=== PATIENT | female | born 2000 | race Caucasian/White ===

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

== ENCOUNTER → 2018-09-15 | Outpatient (REF) | payer OTHER ==
[~2018-09-15] MED LIST: CONC54TA4; FLUO20CA19
== END ==
LOC: M SFHCPLAZ 08:05
PROVIDERS: ATTEND Nurse Practitioner Family
DX: Z00.00 Encounter for general adult medical examination without abnormal findings (principal); Z68.41 Body mass index [BMI] 40.0-44.9, adult; F41.8 Other specified anxiety disorders

== ENCOUNTER 2018-09-28 23:55 | Emergency (ER) | payer OTHER ==
[~2018-09-28] VITALS: Ht 162.6 cm; Wt 104.5 kg
[2018-09-29] MEDS ORDERED: FLUO20CA19 (00:01)
[2018-09-29] MEDS ORDERED: CONC54TA4 (00:01)
--- NOTE | 2018-09-29 01:30 | REP ---
Clinical: Trauma. Technique: Leavitt and bilateral lateral views of the nasal bones. Findings: Nasal septum is midline. Nasal bones appear intact without acute fracture or dislocation. Overlying soft tissues are grossly unremarkable. Impression: No acute nasal bone fracture identified. Electronically Signed by Fran Mcgee MD 09/29/2018 01:21 A
[2018-09-29 02:37] VITALS: BP 107/62
== END 2018-09-29 02:39 | disposition home or self-care (01) ==
LOC: M ED 23:55
DX: S00.33XA Contusion of nose, initial encounter (principal); W22.01XA Walked into wall, initial encounter; Y92.098 Other place in other non-institutional residence as the place of occurrence of the external cause; Z88.0 Allergy status to penicillin; Z79.899 Other long term (current) drug therapy

== ENCOUNTER 2018-10-20 18:34 | Emergency (ER) | payer OTHER ==
[~2018-10-20] VITALS: Ht 162.6 cm; Wt 104.5 kg
--- NOTE | 2018-10-20 19:07 | REP ---
Clinical: Trauma. Technique: AP, lateral, bilateral oblique views left third and fourth digits . Findings: The osseous structures and joint spaces are intact and normal. There is no evidence for acute fracture or dislocation. Surrounding soft tissues are unremarkable. No subcutaneous emphysema or radiodense foreign body. Impression: No obvious acute fracture or dislocation. Electronically Signed by Fran Mcgee MD 10/20/2018 06:58 P
[2018-10-20] MEDS ORDERED: KETO10TAB PO (19:26)
[2018-10-20] MEDS ORDERED: ADACEL/BOOSTRIX VACCINE (DIPHTH/PERTUSS/ACELL/TETANUS)0.5ML SYR (90715) IM ONE (19:30)
[2018-10-20 19:41] VITALS: BP 126/70
== END 2018-10-20 19:42 | disposition home or self-care (01) ==
LOC: M ED 18:34
DX: S60.042A Contusion of left ring finger without damage to nail, initial encounter (principal); W23.0XXA Caught, crushed, jammed, or pinched between moving objects, initial encounter; Y92.89 Other specified places as the place of occurrence of the external cause; Y99.9 Unspecified external cause status; F90.9 Attention-deficit hyperactivity disorder, unspecified type; F41.9 Anxiety disorder, unspecified; F32.9 Major depressive disorder, single episode, unspecified; Z88.0 Allergy status to penicillin; F17.200 Nicotine dependence, unspecified, uncomplicated

== ENCOUNTER → 2018-11-16 | Outpatient (REF) | payer OTHER ==
[~2018-11-16] MED LIST changes: +KETO10TAB PO
[2018-11-16 16:37] LABS: BLOOD UREA NITROGEN 10 MG/DL (7-18); CALCIUM LEVEL 9.3 MG/DL (8.5-10.1); CARBON DIOXIDE LEVEL 29 MEQ/L (21-32); CHLORIDE LEVEL 105 MEQ/L (98-107); CREATININE FOR GFR 0.89 MG/DL (0.55-1.30); GLUCOSE, FASTING 87 MG/DL (70-100); POTASSIUM SERUM 4.1 MEQ/L (3.5-5.1); SODIUM LEVEL 141 MEQ/L (136-145)
== END ==
LOC: M LABDRAW1 15:53
PROVIDERS: ATTEND Physician Assistant Surgical
DX: S60.042D Contusion of left ring finger without damage to nail, subsequent encounter (principal)

== ENCOUNTER → 2018-11-19 | Outpatient (REF) | payer OTHER ==
[2018-11-19 13:02] LABS: ALBUMIN 4.1 GM/DL (3.2-5.2); ALT/SGPT 25 U/L (12-78); BILIRUBIN,TOTAL 0.6 MG/DL (0.2-1.0); BLOOD UREA NITROGEN 12 MG/DL (7-18); CALCIUM LEVEL 9.2 MG/DL (8.5-10.1); CARBON DIOXIDE LEVEL 29 MEQ/L (21-32); CHLORIDE LEVEL 106 MEQ/L (98-107); CREATININE FOR GFR 0.78 MG/DL (0.55-1.30); GLUCOSE, FASTING 79 MG/DL (70-100); POTASSIUM SERUM 4.2 MEQ/L (3.5-5.1); SODIUM LEVEL 141 MEQ/L (136-145); TOTAL PROTEIN 7.4 GM/DL (6.4-8.2)
== END ==
LOC: M SFHCPLAZ 09:44
PROVIDERS: ATTEND Nurse Practitioner Family
DX: Z00.00 Encounter for general adult medical examination without abnormal findings (principal); Z68.41 Body mass index [BMI] 40.0-44.9, adult; F41.8 Other specified anxiety disorders

== ENCOUNTER → 2018-12-31 | Outpatient (REF) | payer OTHER ==
[2018-12-31 12:23] LABS: HEMOGLOBIN A1c 5.2 %
== END ==
LOC: M SFHCPLAZ 09:40
PROVIDERS: ATTEND Physician Assistant
DX: E16.2 Hypoglycemia, unspecified (principal)

== ENCOUNTER → 2019-11-10 | Outpatient (REF) | payer OTHER ==
[~2019-11-10] MED LIST changes: -FLUO20CA19; +FLUO20CA22
[2019-11-10 13:47] LABS: HEMATOCRIT 42.4 % (36.0-47.0); HEMOGLOBIN 14.1 g/dl (12.0-15.5); MEAN CORPUSCULAR HEMOGLOBIN 29.6 pg (27.0-33.0); MEAN CORPUSCULAR HGB CONC 33.3 g/dl (32.0-36.5); MEAN CORPUSCULAR VOLUME 89.1 fl (80.0-96.0); PLATELET COUNT, AUTOMATED 298 10^3/uL (150-450); RED BLOOD COUNT 4.76 10^6/uL (4.00-5.40); WHITE BLOOD COUNT 6.6 10^3/uL (4.0-10.0)
[2019-11-10 14:24] LABS: HEMOGLOBIN A1c 5.5 %
[2019-11-10 14:31] LABS: HCG, SERUM QUANTITATIVE 730 MIU/ML
[2019-11-11 11:19] LABS: RUBELLA IgG QUALITATIVE IMMUNE (IMMUNE)
[2019-11-11 11:47] LABS: HEPATITIS C VIRUS ABY INDEX < 0.0 INDEX (<0.8)
[2019-11-11 11:48] LABS: HIV 1&2 SCREEN CENTAUR NEGATIVE (NEGATIVE)
== END ==
LOC: M LAB REF 12:33
PROVIDERS: ATTEND Obstetrics & Gynecology
DX: O36.80X0 Pregnancy with inconclusive fetal viability, not applicable or unspecified (principal)

== ENCOUNTER → 2019-11-21 | Outpatient (REF) | payer MEDICAID | LOC: M LAB REF 16:25 | PROVIDERS: ATTEND Obstetrics & Gynecology | DX: O36.80X0 Pregnancy with inconclusive fetal viability, not applicable or unspecified (principal) ==

== ENCOUNTER 2020-03-29 18:50 | Emergency (ER) | payer OTHER ==
[~2020-03-29] VITALS: Ht 162.6 cm; Wt 107.7 kg
[2020-03-29] MEDS ORDERED: PREN1CHW6 PO (19:01)
[2020-03-29] MEDS ORDERED: ACETAMINOPHEN 500 MG TAB PO ONE (19:30)
[2020-03-29 21:29] VITALS: BP 116/58
--- NOTE | 2020-03-30 05:01 | REP ---
REASON: Status post twisting injury. The examination is limited by two views. A two-view examination cannot rule out a fracture. This limited two-view examination shows no gross fracture. The mortise is intact. Electronically Signed by Robert Bright DO 03/30/2020 09:16 A
== END 2020-03-29 21:32 | disposition home or self-care (01) ==
LOC: M ED 18:50
DX: S93.402A Sprain of unspecified ligament of left ankle, initial encounter (principal); X50.9XXA Other and unspecified overexertion or strenuous movements or postures, initial encounter; Y92.89 Other specified places as the place of occurrence of the external cause; Y99.0 Civilian activity done for income or pay

== ENCOUNTER → 2020-04-19 | Outpatient (CLI) | payer OTHER ==
[~2020-04-19] MED LIST changes: +PREN1CHW6 PO; +TUMS500C PO
[2020-05-19 10:53] LABS: HEMATOCRIT 35.5 % (36.0-47.0); HEMOGLOBIN 11.8 g/dl (12.0-15.5); MEAN CORPUSCULAR HEMOGLOBIN 29.8 pg (27.0-33.0); MEAN CORPUSCULAR HGB CONC 33.2 g/dl (32.0-36.5); MEAN CORPUSCULAR VOLUME 89.6 fl (80.0-96.0); PLATELET COUNT, AUTOMATED 207 10^3/uL (150-450); RED BLOOD COUNT 3.96 10^6/uL (4.00-5.40); WHITE BLOOD COUNT 8.4 10^3/uL (4.0-10.0)
== END ==
LOC: M LAB 12:32
PROVIDERS: ATTEND Obstetrics & Gynecology
DX: Z34.82 Encounter for supervision of other normal pregnancy, second trimester (principal); Z3A.00 Weeks of gestation of pregnancy not specified

== ENCOUNTER 2020-07-16 15:03 | Inpatient (IN) | payer OTHER ==
[~2020-07-16] VITALS: Ht 162.6 cm; Wt 119.0 kg
[~2020-07-16 15:03] MED LIST changes: -TUMS500C PO
[2020-07-16 15:26] VITALS: BP 119/86
[2020-07-16] MEDS ORDERED: TUMS500C PO (15:31)
[2020-07-16] MEDS ORDERED: LACTATED RINGER'S 1000 ML IV STA (15:34)
[2020-07-16 16:47] LABS: HEMATOCRIT 37.2 % (36.0-47.0); HEMOGLOBIN 12.1 g/dl (12.0-15.5); MEAN CORPUSCULAR HEMOGLOBIN 27.2 pg (27.0-33.0); MEAN CORPUSCULAR HGB CONC 32.5 g/dl (32.0-36.5); MEAN CORPUSCULAR VOLUME 83.6 fl (80.0-96.0); PLATELET COUNT, AUTOMATED 252 10^3/uL (150-450); RED BLOOD COUNT 4.45 10^6/uL (4.00-5.40); WHITE BLOOD COUNT 9.2 10^3/uL (4.0-10.0)
[2020-07-16 17:12] VITALS: BP 133/83
[2020-07-16] MEDS: LR 1,000 ML IV SCH ×2 (18:11→22:58)
[2020-07-16] MEDS: miSOPROStol 50 MCG 1/2 TAB (S0191) PO SCH ×2 (18:11→22:58)
[2020-07-16 18:14] VITALS: BP 134/81
[2020-07-16] MEDS ORDERED: [UNRECOGNIZED DRUG - REMARK] XX SCH (21:00)
[2020-07-17] VITALS (28 sets, daily range): BP systolic 95–168; BP diastolic 51–97
[2020-07-17] MEDS: miSOPROStol 50 MCG 1/2 TAB (S0191) PO SCH ×2 (03:42→06:00)
[2020-07-17] MEDS: CLINDAMYCIN 900 MG in IV 1 EA IV SCH ×3 (06:00→23:00)
[2020-07-17] MEDS ORDERED: FENTANYL 2MCG/ML ROPIVACAINE 0.2% IN 0.9% NACL 100ML IVBAG As Ordered ONE (06:17)
[2020-07-17] MEDS ORDERED: CLINDAMYCIN 900 MG/50 ML PREMIX BAG As Ordered ONE (06:39)
[2020-07-17] MEDS ORDERED: diphenhydrAMINE 50MG/ML VIAL (J1200) IV PRN (07:45)
[2020-07-17] MEDS ORDERED: REFRIGERATOR IV KEYS XX PRN (07:45)
[2020-07-17] MEDS ORDERED: LACTATED RINGER'S 1000 ML IV PRN (07:45)
[2020-07-17] MEDS ORDERED: NALOXONE INJ 0.4MG/1ML VIAL (J2310 PER 1MG) IV PRN (07:45)
[2020-07-17] MEDS ORDERED: ePHEDrine SULFATE 25 MG/5 ML(5MG/ML) SYRINGE IV PRN (07:45)
[2020-07-17] MEDS ORDERED: ONDANSETRON 4MG/2ML VIAL IV PRN (07:45)
[2020-07-17] MEDS ORDERED: EPIDURAL/PCA KEYS XX PRN (07:45)
[2020-07-17] MEDS ORDERED: EPIDURAL COMMENT XX SCH (07:45)
[2020-07-17] MEDS: FENTANYL/ROPIVACAINE/NACL BAG 100 ML EPIDURAL SCH ×2 (08:18→15:35)
[2020-07-17] MEDS ORDERED: OXYTOCIN 30 UNITS IN 0.9% NaCl 500ML IV BAG (J2590) As Ordered ONE (08:35)
[2020-07-17] MEDS ORDERED: OXYTOCIN DRIP 30 UNITS in IV 1 EA IV SCH ×2 (09:00→20:50)
[2020-07-17] MEDS: LR 1,000 ML IV SCH ×3 (09:11→15:42)
[2020-07-17] MEDS ORDERED: BICITRA 30ML SOLN UDC As Ordered ONE (20:18)
[2020-07-17] MEDS ORDERED: METHYLERGONOVINE MALEATE 0.2 MG/ML VIAL (J2210) IM PRN (21:00)
[2020-07-17] MEDS ORDERED: MOM 30ML SUSPENSION UDC PO PRN (21:00)
[2020-07-17] MEDS ORDERED: ACETAMINOPHEN TAB 650MG DOSE (2X325MG) PO PRN (21:00)
[2020-07-17] MEDS ORDERED: DOCUSATE SODIUM 100 MG CAP PO PRN (21:00)
[2020-07-17] MEDS ORDERED: MEASLES,MUMPS,RUBELLA VACCINE INJ (MMR-II) (90707) SC SCH (21:00)
[2020-07-17] MEDS ORDERED: METHYLERGONOVINE MALEATE 0.2 MG TAB PO PRN (21:00)
[2020-07-17] MEDS ORDERED: ACETAMINOPHEN 500 MG TAB PO PRN (21:00)
[2020-07-17] MEDS ORDERED: DIBUCAINE 1% OINTMENT 30GM TOP PRN (21:00)
[2020-07-17] MEDS ORDERED: ANUSOL HC CREAM 30GM TOP PRN (21:00)
[2020-07-17] MEDS ORDERED: RHOGAM 300 MCG (1500 IU) INJ (J2790) IM SCH (21:00)
[2020-07-17] MEDS ORDERED: IBUPROFEN 600MG TAB PO PRN (21:00)
[2020-07-17] MEDS ORDERED: METHYLERGONOVINE MALEATE 0.2 MG/ML VIAL (J2210) As Ordered ONE (21:14)
[2020-07-17 21:43] LABS: CORD GAS ABE A -5.7; CORD GAS O2 SAT A 52.5 %; CORD GAS PCO2 A 51.3 mmHg; CORD GAS PH A 7.251 UNITS; CORD GAS SBC A 18.8 MEQ/L; CORD GAS TCO2 A 23.6 MEQ/L
[2020-07-17 21:43] LABS: CORD GAS ABE V -6.4; CORD GAS HCO3 V 19.4 MEQ/L; CORD GAS O2 SAT V 78.7 %; CORD GAS PCO2 V 39.6 mmHg; CORD GAS PH V 7.308 UNITS; CORD GAS PO2 V 37.3 mmHg; CORD GAS SBC V 18.9 MEQ/L; CORD GAS TCO2 V 20.6 MEQ/L
[2020-07-18 00:20] VITALS: BP 135/72
[2020-07-18 05:40] VITALS: BP 120/71
--- NOTE | 2020-07-18 07:42 | DN ---
DATE OF DELIVERY: 07/17/2020. Aly is a 20-year-old female, 1, para 0, who was admitted at 40+ weeks gestation for an induction. She underwent three Cytotec, followed by artificial rupture of membranes and Pitocin induction. After an epidural she progressed to fully dilated, pushed and delivered a live male infant in the right occiput anterior position with a nuchal cord x1, that was reduced on the perineum. Apgars are 8 and 9. weight 8 pounds 11 ounces. Placenta delivered spontaneously intact; three vessel cord. Perineum, vagina, cervix inspected, a second degree midline perineal laceration noted, which was repaired using 2-0 Chromic. Estimated blood loss was 450 cc. One dose of Methergine I.M. given after delivery of the placenta and to help control bleeding. Good hemostasis noted. Patient tolerated the procedure well. MTDD
[2020-07-18] MEDS: PRENATAL VITAMINS CHEWABLE TABLET PO SCH (09:08)
[2020-07-18] MEDS: IBUPROFEN 800 MG TAB PO PRN (09:09)
[2020-07-18] MEDS: LR 1,000 ML IV SCH (09:09)
--- NOTE | 2020-07-18 09:30 | HPE ---
DATE OF ADMISSION: 07/16/2020 Aly is a 20-year-old female 1, para 0 with an estimated date of confinement (EDC) of 07/13/2020, estimated gestational age (EGA) 40+ gestation who is being admitted for an induction. Upon admission, no bleeding, no leakage of fluid, good movement. Her record reviewed which was essentially unremarkable. LABORATORY: Blood type is O positive, rubella immune, hepatitis negative, HIV negative, GC/chlamydia negative. One-hour sugar testing was within normal limits. Her GBS is positive. MEDICAL HISTORY: Significant for asthma. PAST SURGICAL HISTORY: Tonsillectomy as a child, pyloric stenosis, left knee surgery. SOCIAL HISTORY: Denies any alcohol or drugs or cigarette smoking. REVIEW OF SYSTEMS: Unremarkable. MEDICATIONS: vitamins. ALLERGIES: PENICILLIN. PHYSICAL EXAMINATION: Obese female in no acute distress. Abdomen: Soft, nontender, nondistended. Extremities: No clubbing, cyanosis, or edema. Vaginal exam: Fingertip, thick, and posterior. Fetus at -3 station in vertex position. Tracing reviewed. Category 1 tracing. ASSESSMENT: 1. Intrauterine at 40+ weeks gestation. 2. Morbid obesity. PLAN: Admit to Labor and Delivery. Routine labs sent. Induction process discussed. We will initiate Cytotec induction, pain management also discussed. The patient opted for an epidural. We will continue to monitor. Anticipate delivery. MTDD
[2020-07-18 18:01] VITALS: BP 122/64
[2020-07-19] MEDS: IBUPROFEN 800 MG TAB PO PRN ×2 (01:29→08:53)
[2020-07-19 05:44] VITALS: BP 121/67
[2020-07-19] MEDS: PRENATAL VITAMINS CHEWABLE TABLET PO SCH (08:53)
[2020-07-19 08:55] VITALS: BP 121/67
== END 2020-07-19 11:35 | disposition home or self-care (01) | DRG 560 ==
LOC: M LDI 15:03 → M OBS 07-18 00:08
PROVIDERS: ADMIT Obstetrics & Gynecology; ATTEND Obstetrics & Gynecology
PROC: 3E0P7GC Introduction of Other Therapeutic Substance into Female Reproductive, Via Natural or Artificial Opening (ICD-10-PCS; 2020-07-16)
PROC: 10E0XZZ Delivery of Products of Conception, External Approach (ICD-10-PCS; principal; 2020-07-17)
PROC: 0KQM0ZZ Repair Perineum Muscle, Open Approach (ICD-10-PCS; 2020-07-17)
PROC: 10907ZC Drainage of Amniotic Fluid, Therapeutic from Products of Conception, Via Natural or Artificial Opening (ICD-10-PCS; 2020-07-17)
DX: O48.0 Post-term pregnancy (principal); Z3A.40 40 weeks gestation of pregnancy; O99.214 Obesity complicating childbirth; E66.01 Morbid (severe) obesity due to excess calories; O69.81X0 Labor and delivery complicated by cord around neck, without compression, not applicable or unspecified; O70.1 Second degree perineal laceration during delivery; Z37.0 Single live birth

== ENCOUNTER → 2020-09-26 | Outpatient (REF) | payer OTHER ==
[~2020-09-26] MED LIST changes: +TUMS500C PO
[2020-09-26 13:08] LABS: BASO % 0.6 % (0.0-1.0); EOS # 0.1 10^3/uL (0.0-0.5); EOS % 1.7 % (0.0-3.0); HEMATOCRIT 40.1 % (36.0-47.0); HEMOGLOBIN 11.9 g/dl (12.0-15.5); LYMPH # 1.4 10^3/uL (1.5-5.0); LYMPH % 29.4 % (24.0-44.0); MEAN CORPUSCULAR HEMOGLOBIN 24.4 pg (27.0-33.0); MEAN CORPUSCULAR HGB CONC 29.7 g/dl (32.0-36.5); MEAN CORPUSCULAR VOLUME 82.2 fl (80.0-96.0); MONO # 0.4 10^3/uL (0.0-0.8); MONO % 7.4 % (0.0-5.0); NEUTROPHILS # 2.9 10^3/uL (1.5-8.5); NEUTROPHILS % 60.7 % (36.0-66.0); PLATELET COUNT, AUTOMATED 322 10^3/uL (150-450); RED BLOOD COUNT 4.88 10^6/uL (4.00-5.40); WHITE BLOOD COUNT 4.8 10^3/uL (4.0-10.0)
[2020-09-26 13:45] LABS: ALBUMIN 4.3 GM/DL (3.2-5.2); ALT/SGPT 33 U/L (12-78); BILIRUBIN,TOTAL 0.4 MG/DL (0.2-1.0); BLOOD UREA NITROGEN 14 MG/DL (7-18); CALCIUM LEVEL 9.4 MG/DL (8.5-10.1); CARBON DIOXIDE LEVEL 28 MEQ/L (21-32); CHLORIDE LEVEL 105 MEQ/L (98-107); CHOLESTEROL LEVEL 212 MG/DL (<200); CHOLESTEROL RISK RATIO 3.365 (<5); CREATININE FOR GFR 0.73 MG/DL (0.55-1.30); FREE T4 0.81 NG/DL (0.76-1.46); GLOMERULAR FILTRATION RATE > 60.0 (>60); GLUCOSE, FASTING 96 MG/DL (70-100); HDL CHOLESTEROL 63 MG/DL (>40); LDL CHOLESTEROL 122 MG/DL (<100); NON-HDL-C 149 MG/DL; POTASSIUM SERUM 4.7 MEQ/L (3.5-5.1); SODIUM LEVEL 138 MEQ/L (136-145); THYROID STIMULATING HORMONE 0.923 uIU/ML (0.358-3.740); TOTAL PROTEIN 7.3 GM/DL (6.4-8.2); TRIGLYCERIDES LEVEL 136 MG/DL (<150)
== END ==
LOC: M SFHCPLAZ 10:55
PROVIDERS: ATTEND Nurse Practitioner Family
DX: H92.02 Otalgia, left ear (principal); R73.01 Impaired fasting glucose; Z13.228 Encounter for screening for other metabolic disorders; Z13.220 Encounter for screening for lipoid disorders

== ENCOUNTER 2020-12-22 22:34 | Emergency (ER) | payer OTHER ==
[~2020-12-22] VITALS: Ht 162.6 cm; Wt 109.8 kg
[2020-12-22] MEDS ORDERED: ZOLO25TA PO (22:40)
[2020-12-22] MEDS ORDERED: birth control PO (22:40)
[2020-12-22] MEDS ORDERED: CONC18TA14 PO (22:40)
[2020-12-23 01:05] LABS: BASO % 0.5 % (0.0-1.0); EOS # 0.1 10^3/uL (0.0-0.5); HEMATOCRIT 36.6 % (36.0-47.0); HEMOGLOBIN 11.2 g/dl (12.0-15.5); LYMPH # 1.9 10^3/uL (1.5-5.0); LYMPH % 31.8 % (24.0-44.0); MEAN CORPUSCULAR HEMOGLOBIN 23.9 pg (27.0-33.0); MEAN CORPUSCULAR HGB CONC 30.6 g/dl (32.0-36.5); MONO # 0.4 10^3/uL (0.0-0.8); MONO % 7.5 % (2.0-8.0); NEUTROPHILS # 3.5 10^3/uL (1.5-8.5); PLATELET COUNT, AUTOMATED 321 10^3/uL (150-450); RED BLOOD COUNT 4.69 10^6/uL (4.00-5.40); WHITE BLOOD COUNT 5.9 10^3/uL (4.0-10.0)
[2020-12-23 01:10] LABS: INR 0.94; PROTHROMBIN TIME 12.7 SECONDS (12.5-14.3)
[2020-12-23 01:11] LABS: PARTIAL THROMBOPLASTIN TIME 28.7 SECONDS (24.2-38.5)
[2020-12-23 01:23] LABS: HCG, SERUM QUALITATIVE NEGATIVE (NEGATIVE)
[2020-12-23 01:25] LABS: ALT/SGPT 23 U/L (12-78); BLOOD UREA NITROGEN 13 MG/DL (7-18); CARBON DIOXIDE LEVEL 27 MEQ/L (21-32); CHLORIDE LEVEL 106 MEQ/L (98-107); CPK CREATINE PHOSPHOKINASE 140 U/L (26-192); CREATININE FOR GFR 0.85 MG/DL (0.55-1.30); GLOMERULAR FILTRATION RATE > 60.0 (>60); GLUCOSE, FASTING 90 MG/DL (70-100); MB/CK RELATIVE INDEX 0.71 (< OR =4); POTASSIUM SERUM 4.2 MEQ/L (3.5-5.1); SODIUM LEVEL 139 MEQ/L (136-145)
[2020-12-23 01:26] LABS: ALBUMIN 3.5 GM/DL (3.2-5.2); BILIRUBIN,DIRECT < 0.1 MG/DL (0.0-0.2); BILIRUBIN,TOTAL 0.3 MG/DL (0.2-1.0); FREE T4 0.83 NG/DL (0.76-1.46); LIPASE 113 U/L (73-393); TOTAL PROTEIN 7.1 GM/DL (6.4-8.2); TROPONIN I < 0.02 NG/ML (< 0.10)
[2020-12-23] MEDS ORDERED: ISOVUE-370 76% 100ML VIAL As Ordered ONE (01:26)
[2020-12-23 01:36] LABS: D-DIMER QUANT < 270 ng/ml (<500)
--- NOTE | 2020-12-23 01:53 | REPVR ---
PROCEDURE INFORMATION: Exam: CTA Chest With Contrast Exam date and time: 12/23/2020 1:42 AM Age: 20 years old Clinical indication: Chest pain; Type not specified; Additional info: R/O dissection/ pulmonary embolus TECHNIQUE: Imaging protocol: Computed tomographic angiography of the chest with contrast. 3D rendering (Not supervised by radiologist): MIP and/or 3D reconstructed images were created by the technologist. Radiation optimization: All CT scans at this facility use at least one of these dose optimization techniques: automated exposure control; mA and/or kV adjustment per patient size (includes targeted exams where dose is matched to clinical indication); or iterative reconstruction. Contrast material: ISOVUE 370; Contrast volume: 75 ml; Contrast route: INTRAVENOUS (IV); COMPARISON: CT ANGIO CHEST 06/28/2015 3:36 PM FINDINGS: Pulmonary arteries: No focal pulmonary artery filling defect to suggest acute pulmonary embolus. Aorta: No thoracic aortic aneurysm or dissection. Lungs: No suspicious lung mass or air space process. No suspicious lung mass or air space process. No central endobronchial lesion. Pleural spaces: No pleural effusion or pneumothorax. Heart: Mild enlargement of the heart, without change. No pericardial effusion. Mediastinal space: Residual thymic tissue is present in the anterior mediastinum. Lymph nodes: No enlarged mediastinal lymph nodes. Bones/joints: Bony structures show no acute fracture or destructive process. Soft tissues: No asymmetric abnormality of the extrathoracic soft tissues. Other findings: . IMPRESSION: 1. No evidence of acute pulmonary embolus or aortic dissection. 2. No other acute or concerning focal intrathoracic abnormality. 3. Prominent sized heart without interval change and with no evidence of pulmonary edema Electronically signed by: Ang Wei On 12/23/2020 01:53:33 AM
--- NOTE | 2020-12-23 02:02 | REPVR ---
PROCEDURE INFORMATION: Exam: XR Chest Exam date and time: 12/23/2020 1:51 AM Age: 20 years old Clinical indication: Other: Chest pain TECHNIQUE: Imaging protocol: XR of the chest Views: 1 view. COMPARISON: CT ANGIO CHEST 12/23/2020 1:34 AM FINDINGS: Lungs: Degree of lung inflation is normal. No evidence of pulmonary edema. No focal consolidation or parenchymal lung mass. Pleural spaces: No pleural effusion or pneumothorax. Heart/Mediastinum: Cardiac silhouette appears normal. No adenopathy or hilar mass. Bones/joints: Osseous structures show no concerning abnormality. IMPRESSION: No acute or focal cardiopulmonary process. Electronically signed by: Ang Wei On 12/23/2020 02:02:43 AM
[2020-12-23] MEDS: diphenhydrAMINE 25MG CAP PO ONE (02:05)
[2020-12-23] MEDS: ACETAMINOPHEN TAB 650MG DOSE (2X325MG) PO ONE (02:05)
[2020-12-23] MEDS: NS 1,000 ML IV ONE (02:06)
[2020-12-23 03:00] VITALS: BP 119/65
[2020-12-23] MEDS ORDERED: IBUP-1022 PO (03:07)
[2020-12-23] MEDS ORDERED: PEPC20TA18 PO (03:08)
[2020-12-23] MEDS ORDERED: FAMO20TA PO (03:09)
--- NOTE | 2020-12-23 06:38 | ECGEPIP ---
[facility] - ED Test Date: 2020-12-22 Pat Name: JACK LOTT Department: Room: - Gender: Female Pharmacy Benefits Coordinator: JUDIT : 2000 Requested By: KARISSA CHAMORRO Order Number: [id number] Reading MD: Helen Leahy Measurements Intervals [place] Rate: 89 P: 43 [place]: 164 QRS: -12 QRSD: 82 T: 32 QT: 374 QTc: 455 Interpretive Statements Normal sinus rhythm Minimal voltage criteria for LVH, may be normal variant ( R in aVL ) Nonspecific T wave abnormality Delayed R wave progression cw 06/28/[address] T wave changes Electronically Signed on 12-23-2020 6:38:47 EDT by Helen Leahy
--- NOTE | 2020-12-23 06:40 | ECGEPIP ---
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
== END 2020-12-23 03:24 | disposition home or self-care (01) ==
LOC: M ED 22:34
DX: R07.89 Other chest pain (principal); R94.31 Abnormal electrocardiogram [ECG] [EKG]; Q87.40 Marfan syndrome, unspecified; Z79.899 Other long term (current) drug therapy; Z79.3 Long term (current) use of hormonal contraceptives
CPT/HCPCS: 71045; 71275; 80048; 80076; 82550; 82553; 83690; 84439; 84443; 84703; 85025; 85379; 85610; 85730; 93005; 93041; 94760; 96360; 99285; Q9967

== ENCOUNTER 2021-04-03 21:39 | Inpatient (IN) | payer OTHER ==
[~2021-04-03] VITALS: Ht 162.6 cm; Wt 108.8 kg
[~2021-04-03 21:39] MED LIST changes: +CONC18TA14 PO; +FAMO20TA PO; +IBUP-1022 PO; +PEPC20TA18 PO; +ZOLO25TA PO; +birth control PO
[2021-04-03] MEDS ORDERED: LO LTAB PO (21:47)
[2021-04-03 22:28] LABS: HEMOGLOBIN 12.1 g/dl (12.0-15.5); MEAN CORPUSCULAR HEMOGLOBIN 25.6 pg (27.0-33.0); MEAN CORPUSCULAR HGB CONC 31.8 g/dl (32.0-36.5); MEAN CORPUSCULAR VOLUME 80.5 fl (80.0-96.0); PLATELET COUNT, AUTOMATED 269 10^3/uL (150-450); RED BLOOD COUNT 4.72 10^6/uL (4.00-5.40); WHITE BLOOD COUNT 6.7 10^3/uL (4.0-10.0)
[2021-04-03 23:00] LABS: AMPHETAMINES LEVEL URINE NEGATIVE (NEGATIVE); BARBITURATES URINE NEGATIVE (NEGATIVE); BENZODIAZEPINES URINE NEGATIVE (NEGATIVE); CANNABINOIDS URINE NEGATIVE (NEGATIVE); COCAINE METABOLITE URINE NEGATIVE (NEGATIVE); METHADONE URINE NEGATIVE (NEGATIVE); OPIATES URINE NEGATIVE (NEGATIVE); PHENCYCLIDINE URINE NEGATIVE (NEGATIVE)
[2021-04-03 23:06] LABS: ACETAMINOPHEN LEVEL < 2.0 UG/ML (10.0-30.0); ALBUMIN 3.9 GM/DL (3.2-5.2); ALT/SGPT 30 U/L (12-78); BILIRUBIN,DIRECT < 0.1 MG/DL (0.0-0.2); BILIRUBIN,TOTAL 0.2 MG/DL (0.2-1.0); BLOOD UREA NITROGEN 12 MG/DL (7-18); CALCIUM LEVEL 9.1 MG/DL (8.5-10.1); CARBON DIOXIDE LEVEL 26 MEQ/L (21-32); CHLORIDE LEVEL 109 MEQ/L (98-107); CREATININE FOR GFR 0.86 MG/DL (0.55-1.30); ETHYL ALCOHOL (ETHANOL) < 0.003 % (0.000-0.010); GLOMERULAR FILTRATION RATE > 60.0 (>60); GLUCOSE, FASTING 83 MG/DL (70-100); POTASSIUM SERUM 4.3 MEQ/L (3.5-5.1); SALICYLATE LEVEL < 1.7 MG/DL (5.0-30.0); SODIUM LEVEL 142 MEQ/L (136-145); TOTAL PROTEIN 7.4 GM/DL (6.4-8.2)
[2021-04-03] MEDS ORDERED: FAMO20TA PO (23:12)
[2021-04-03] MEDS ORDERED: METH36TA5 PO (23:12)
[2021-04-03] MEDS ORDERED: ZOLO100T PO (23:12)
--- NOTE | 2021-04-04 05:34 | ECGEPIP ---
[facility] - ED Test Date: 2021-04-04 Pat Name: JACK LOTT Department: Room: - Gender: Female Dinkey Engine Firer: YOLY BROWNB: 2000 Requested By: RAJESH Teran Order Number: [id number] Reading MD: Moo Lynn Measurements Intervals [place] Rate: 66 P: 18 NC: 160 QRS: 16 QRSD: 84 T: 12 QT: 410 QTc: 429 Interpretive Statements Normal sinus rhythm POOR R WAVE PROGRESSION SIMILAR TO 12/23/20 Electronically Signed on 04-04-2021 5:34:45 EDT by Moo Lynn
[2021-04-04 08:36] LABS: HCG, SERUM QUALITATIVE NEGATIVE (NEGATIVE)
[2021-04-04] MEDS ORDERED: SERTRALINE 100 MG TAB PO ONE (09:10)
[2021-04-04] MEDS ORDERED: METHYLPHENIDATE ER 18 MG TABLET (CONCERTA) PO ONE (09:10)
[2021-04-04 09:13] LABS: RSV AMPLIFICATION NEGATIVE (NEGATIVE)
[2021-04-04] MEDS ORDERED: hydrOXYzine 25 MG TAB PO PRN (11:25)
[2021-04-04] MEDS ORDERED: MAALOX 30 ML SUSP *UDC PO PRN (11:25)
[2021-04-04] MEDS ORDERED: traZODone 50 MG TAB PO PRN (11:25)
[2021-04-04] MEDS ORDERED: MOM 30ML SUSPENSION UDC PO PRN (11:25)
[2021-04-04 14:07] VITALS: BP 121/74
[2021-04-04] MEDS ORDERED: hydrOXYzine 50 MG TAB PO PRN (15:45)
--- NOTE | 2021-04-04 16:15 | MHHPEPDOC ---
General Date Of Admission: Apr 04, 2021 Legal Status: 9.39 Chief Complaint "I was having self-harm tung. History of Present Illness HISTORY OF THE PRESENT ILLNESS: Patient is a 21 -year-old Single, Employed, Domiciled , female, who reports having depression and self harm (cutting self) thoughts for at least 7 years. She had been seeing a psychiatrist who left the area, but found him later in another clinic. She states that she had been pushing her depression aside but recently states that her depression and anxiety has increased due to: 1) boyfriend recently had surgery, she now has to support their family, 2) she recently had a baby who is now 9 months, 3) she feels overwhelmed with working (working 48-60 hours a week) and 4) taking care of the household and 5) taking care of the baby, 6) reports a toxic relationship with her mother. "Everything is on me." PER ED REPORT: Pt self presents to [facility] ED after increasing thoughts of SI. Pt c/o anxiety, depression, intrusive thoughts, erratic appetite, erratic sleep, self-harm and SI. Pt reports that she has a history of self-harm. Pt reports that yesterday she cut superficially on her arms and upper thigh for the first time in 7 years. Pt reports that she did this in an attempt to feel. Pt also reports that she has suffered with depression for 8 years and reports having it under control for the last 7 years however, reports battling with depression since her son has been born. Pt reports loving her son and now not wanting it any other way but also knowing that her plans in life changed drastically since his . Pt reports that her son is now 9 months old. Pt reports seeing outpatient for post- depression however, has felt suicidal 3 times in the last 2 weeks. Pt reports not following through with suicide because of her son. Pt reports feeling as though her son has saved her. Pt reports not currently having a plan for suicide. Pt does report having a lot of anxiety and depression stemming from childhood. Pt reports having a very toxic relationship with her mother and feels that she is bringing this trauma into her present. Pt reports that her boyfriend of 2.5 years is a great support for her. Pt denies HI/AH/VH. Psychiatric Review of Systems Depression (2 or more weeks): depressed mood, insomnia/hypersomnia (due to work schedule ), feelings of excess/guilt, feelings of worthlesness (feelings of hopelessness and hopelessness), appetite changes, suicidal thoughts, other (impulse) Alicia (4 or more days of): denies Psychosis: denies PTSD: history of trauma Anxiety: stressor related anxiety, panic attacks Anxiety/ 6 months or more of: restlessness, keyed up, difficulty concentrating, irritability, sleep disturbance Past Psychiatric History Previous Psychiatric Diagnosis: Major Depressive Disorder, Anxiety, ADD, ADHD Previous Psychiatric Admissions: This is first hospitalization Suicide Attempts: 6 years ago, tried to commit via cutting, no sutures had multiple superficial lacerations Psychiatric Follow-up: Sees Dr. Hatfield Psychiatric medications: Zoloft. Reports being on other anti-depression medications but doesn't remember the names Prozac - was discontinued, Mom didn't think it was effective Wellbutrin - Past Medical History Medical Problems no contributory medical history Head Injury: No Seizures: No Hospitalizations: Yes Surgeries: No Family Medical/Psychiatric HX Medical Problems Father - Cardiac - two heart surgeries, COPD Psychiatric Disorders: No Addiction: No Suicide Attemps/Completions: No Addiction History nicotine (vaped but quit one month ago), alcohol (occasional), denies Social History Childhood: Born in [place], [place] to both parents, describes childhood as "shitty" when she wa 4 years old. Mom was financially stressed. Lived with mother during the week and lived with dad in the weekend. 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 Social Support: My boyfriend, partner at work Legal: None Marital: Single, not , has 1 child Mental Status Examination General Appearance: well groomed, appears stated age, hospital scubs/clothing Build: overweight Demeanor: average, guarded Eye Contact: fair Activity: anxious Behavior: cooperative Speech: clear, reg/rate,rhythm,volume Mood: depressed, anxious Affect: constricted Thought Process: logical/linear Thought Content (Delusions): none reported Thought Content (Other): none reported Thought Content (Aggressive): none reported Perception (Hallucinations): none reported Perception (Other): none reported Cognition (Impairment of): none reported Cognition(Intelligence Est.): average Oriented: Awake, Alert, Oriented times three Insight: fair Judgment: Fair Psychosis: Denies Diagnoses Major Depressive Disorder, Single Episode, Moderate Unspecified Anxiety Disorder ADD ADHD A-FIB/CHADSVASC A-FIB History Current/History of A-Fib/PAF?: No Current PO Anticoag Therapy: No Age/Risk Factor Scoring CHADSVASC: CHADSVASC Response (Comments) Value Age Risk Factor Age < 65 years old 0 Gender Risk Factor Female 1 Hx of CHF No 0 Hx of HTN No 0 Hx of Stroke/TIA/or VTE No 0 Hx of Diabetes No 0 Hx of Vascular Disease No 0 Total 1 Treatment Treatment ordered: NONE Assessment Patient is a 21 -year-old Single, Employed, Domiciled , female, who reports having depression and self harm thoughts for at least 7 years. She had been seeing a psychiatrist who left the area, but found him later in another clinic. She states that she had been pushing her depression aside but recently states that her depression and anxiety has increased due to: boyfriend recently had surgery, she now has to support their family, she recently had a baby who is now 9 months, she feels overwhelmed with working (working 48-60 hours a week) and taking care of the household and taking care of the baby, reports a toxic relationship with her mother. "Everything is on me She is hoping to have her medications adjusted and stabilize her mood. Initial Treatment Plan 1. Patient was admitted on a [9.39] status. 2. Complete history was obtained. 3. With patients permission, family will be contacted and database will be expanded. 4. Patients medication regimen will be reviewed and changed accordingly. 5. Patient will be provided with protected environment. 6. Patient will be treated with individual, group, and milieu therapies. 7. Patient will receive supportive psych-education. 8. Discharge planning will commence immediately. 9. Outpatient follow-up treatment will be strongly recommended. 10. The initial treatment plan will focus initially on: * Depression. * Risk for suicide. ESTIMATED LENGTH OF STAY: 3-7 DAYS. TIME SPENT COUNSELING AND COORDINATING INITIAL CARE: 60 minutes. N/A-No Antipsychotics Vital Signs Vital Signs Date Time Temp Pulse Resp B/P (MAP) Pulse Ox O2 Delivery O2 Flow Rate FiO2 04/04/21 14:07 98.0 76 14 121/74 (90) 100 Room Air Laboratory Data 24H Labs Laboratory Tests 2 04/03/21 22:16: Nucleated Red Blood Cells % (auto) 0.0, Anion Gap 7L, Glomerular Filtration Rate > 60.0, Calcium Level 9.1, Total Bilirubin 0.2, Direct Bilirubin < 0.1, Aspartate Amino Transf (AST/SGOT) 16, Alanine Aminotransferase (ALT/SGPT) 30, Alkaline Phosphatase 103, Total Protein 7.4, Albumin 3.9, Albumin/Globulin Ratio 1.1L, Thyroid Stimulating Hormone (TSH) 1.740, Human Chorionic Gonadotropin, Qual NEGATIVE, Salicylates Level < 1.7L, Urine Opiates Screen NEGATIVE, Urine Methadone Screen NEGATIVE, Acetaminophen Level < 2.0L, Urine Barbiturates Screen NEGATIVE, Urine Phencyclidine Screen NEGATIVE, Urine Amphetamines Screen NEGATIVE, Urine Benzodiazepines Screen NEGATIVE, Urine Cocaine Metabolite Screen NEGATIVE, Urine Cannabinoids Screen NEGATIVE, Ethyl Alcohol Level < 0.003 04/04/21 08:27: Coronavirus (COVID-19)(PCR) NEGATIVE, Influenza Type A (RT-PCR) NEGATIVE, Influenza Type B (RT-PCR) NEGATIVE, Respiratory Syncytial Virus (PCR) NEGATIVE CBC/BMP Laboratory Tests 04/03/21 22:16 Medications Scheduled Methylphenidate HCl (Methylphenidate ER) 36 Mg Tab.er.24, 36 MG PO DAILY, (Reported) Sertraline Hcl (Zoloft) 100 Mg Tablet, 100 MG PO DAILY, (Reported) Scheduled PRN Famotidine (Famotidine) 20 Mg Tablet, 20 MG PO BID PRN for ACID REFLUX, (Reported) Allergies Coded Allergies: Penicillins (Verified Allergy, Unknown, 03/29/20) CHERYL SILVERIO NP Apr 04, 2021 15:15
[2021-04-05 05:43] VITALS: BP 126/78
[2021-04-05] MEDS: SERTRALINE 100 MG TAB PO SCH (08:19)
[2021-04-05] MEDS: METHYLPHENIDATE ER 18 MG TABLET (CONCERTA) PO SCH (08:19)
--- NOTE | 2021-04-05 10:05 | MHIPNPDOC ---
[facility] Progress Note Progress Note DATE OF SERVICE: 04/05/21 HISTORY: Patient is a 21 -year-old Single, Employed, Domiciled , female, who reports having depression and self harm (cutting self) thoughts for at least 7 years. She had been seeing a psychiatrist who left the area, but found him later in another clinic. She states that she had been pushing her depression aside but recently states that her depression and anxiety has increased due to: 1) boyfriend recently had surgery, she now has to support their family, 2) she recently had a baby who is now 9 months, 3) she feels overwhelmed with working (working 48-60 hours a week) and 4) taking care of the household and 5) taking care of the baby, 6) reports a toxic relationship with her mother. "Everything is on me." PER ED REPORT: Pt self presents to [facility] ED after increasing thoughts of SI. Pt c/o anxiety, depression, intrusive thoughts, erratic appetite, erratic sleep, self-harm and SI. Pt reports that she has a history of self-harm. Pt reports that yesterday she cut superficially on her arms and upper thigh for the first time in 7 years. Pt reports that she did this in an attempt to feel. Pt also reports that she has suffered with depression for 8 years and reports having it under control for the last 7 years however, reports battling with depression since her son has been born. Pt reports loving her son and now not wanting it any other way but also knowing that her plans in life changed drastically since his . Pt reports that her son is now 9 months old. Pt reports seeing outpatient for post- depression however, has felt suicidal 3 times in the last 2 weeks. Pt reports not following through with suicide because of her son. Pt reports feeling as though her son has saved her. Pt reports not currently having a plan for suicide. Pt does report having a lot of anxiety and depression stemming from childhood. Pt reports having a very toxic relationship with her mother and feels that she is bringing this trauma into her present. Pt reports that her boyfriend of 2.5 years is a great support for her. Pt denies HI/AH/VH. VITAL SIGNS: See below. CURRENT MEDICATIONS: See below. MENTAL STATUS EXAMINATION: Patient is a 21 -year-old Single, Employed, Domiciled , female, who reports having depression and self harm (cutting self) General Appearance: well groomed, appears stated age, hospital scrubs/clothing Build: overweight Demeanor: average, guarded Eye Contact: fair Activity: anxious Behavior: cooperative Speech: clear, reg/rate,rhythm,volume Mood: depressed, anxious Affect: constricted Thought Process: logical/linear Thought Content (Delusions): none reported Thought Content (Other): none reported Thought Content (Aggressive): none reported Perception (Hallucinations): none reported Perception (Other): none reported Cognition (Impairment of): none reported Cognition(Intelligence Est.): average Oriented: Awake, Alert, Oriented times three Insight: fair Judgment: Fair Psychosis: Denies DIAGNOSES: Major Depressive Disorder, Single Episode, Moderate Unspecified Anxiety Disorder ADD ADHD ASSESSMENT: Patient remains depressed and anxious although reports that she has some improvement with having peers to talk to. Reviews with treatment team that most of her stressors was having to support herself, the baby and her boyfriend as he recently had surgery. She states that she has toxic relationship with her mother but has not has any recent communication with her mother. MANAGEMENT PLAN: Continue all medications as ordered, continue supportive therapies and we will discharge when stable TIME SPENT: 25 minutes. Vital Signs Vital Signs Date Time Temp Pulse Resp B/P (MAP) Pulse Ox O2 Delivery O2 Flow Rate FiO2 04/05/21 07:53 Room Air 04/05/21 05:43 98.0 68 18 126/78 (94) 96 Current Medications Current Medications Medications (Trade) Dose Ordered Sig/Rachelle Route PRN Reason Start Time Stop Time Status Last Admin Dose Admin Acetaminophen (Tylenol Tab) 650 mg Q6HP PRN PO HEADACHE or MILD DISCOMFORT 04/04/21 11:25 Al Hydrox/Mg Hydrox/Simethicone (Mylanta) 30 ml Q4HP PRN PO HEARTBURN/INDIGESTION 04/04/21 11:25 Home Med (Med Rec Complete!) ASDIRECTED XX 04/03/21 23:15 04/03/21 23:16 DC Hydroxyzine HCl (Atarax) 25 mg Q6HP PRN PO ANXIETY 04/04/21 11:25 04/04/21 15:48 DC Hydroxyzine HCl (Atarax) 50 mg Q6H PRN PO ANXIETY/AGITATION 04/04/21 15:45 Magnesium Hydroxide (Milk Of Magnesia) 30 ml DAILYPRN PRN PO CONSTIPATION 04/04/21 11:25 Methylphenidate HCl (Concerta) 36 mg QAM PO 04/05/21 09:00 04/05/21 08:19 Sertraline HCl (Zoloft) 100 mg DAILY PO 04/05/21 09:00 04/05/21 08:19 Trazodone HCl (Desyrel) 50 mg QHSP PRN PO INSOMNIA 04/04/21 11:25 Allergies Coded Allergies: Penicillins (Verified Allergy, Unknown, 03/29/20) CHERYL SILVERIO NP Apr 05, 2021 10:05
[2021-04-05] MEDS: ACETAMINOPHEN TAB 650MG DOSE (2X325MG) PO PRN (14:49)
--- NOTE | 2021-04-05 16:32 | HPEPDOC ---
General Date of Admission Apr 04, 2021 at 11:22 Date of Service: Apr 05, 2021 Chief Complaint The patient is a 21-year-old female admitted with a reason for visit of Unspecified Depressive Disorder. Source: Patient History of Present Illness Patient is 21 years old female with past medical history of depression, anxiety, ADHD presented to hospital with suicidal ideation. Patient reported that Pt reports that yesterday she cut superficially on her arms and upper thigh for the first time in 7 years. Pt reports that she did this in an attempt to feel. Pt also reports that she has suffered with depression for 8 years. Patient denies fever, chills, nausea, and secondary dysuria Home Medications Scheduled Methylphenidate HCl (Methylphenidate ER) 36 Mg Tab.er.24, 36 MG PO DAILY, (Reported) Sertraline Hcl (Zoloft) 100 Mg Tablet, 100 MG PO DAILY, (Reported) Scheduled PRN Famotidine (Famotidine) 20 Mg Tablet, 20 MG PO BID PRN for ACID REFLUX, (Reported) Allergies Coded Allergies: Penicillins (Verified Allergy, Unknown, 03/29/20) Past Medical History Medical History Depression, anxiety, ADHD Family History Father has Marfan syndrome Social History * Smoker: former Smoker Alcohol: Denies Drugs: denies A-FIB/CHADSVASC A-FIB History Current/History of A-Fib/PAF?: No Current PO Anticoag Therapy: No Age/Risk Factor Scoring CHADSVASC: CHADSVASC Response (Comments) Value Age Risk Factor Age < 65 years old 0 Gender Risk Factor Female 1 Hx of CHF No 0 Hx of HTN No 0 Hx of Stroke/TIA/or VTE No 0 Hx of Diabetes No 0 Hx of Vascular Disease No 0 Total 1 Review of Systems Constitutional: Denies: Chills Eyes: Denies: Pain ENT: Denies: Head Aches Skin: Denies: Rash, Lesions Pulmonary: Denies: Dyspnea Cardiovascular: Denies: Chest Pain Gastrointestinal: Denies: Nausea, Vomiting Genitourinary: Denies: Dysuria Hematologic: Denies: Bruising Endocrine: Denies: Polydipsia Musculoskeletal: Denies: Neck Pain Neurological: Denies: Weakness Psych: Reports: Anxiety Physical Examination General Exam: Positive: Alert Eye Exam: Positive: PERRLA ENT Exam: Positive: Atraumatic Neck Exam: Positive: Supple Chest Exam: Positive: Clear to auscultation Heart Exam: Positive: Rate Normal Telemetry: Positive: No significant arrhythmia Abdomen Exam: Positive: Normal bowel sounds Extremity Exam: Negative: Clubbing Skin Exam: Positive: Nl turgor and temperature Neuro Exam: Positive: Normal Gait Psych Exam: Positive: Oriented x 3 Vital Signs Vital Signs Date Time Temp Pulse Resp B/P (MAP) Pulse Ox O2 Delivery O2 Flow Rate FiO2 04/05/21 07:53 Room Air 04/05/21 05:43 98.0 68 18 126/78 (94) 96 Assessment/Plan Patient is 21 years old female with past medical history of depression, anxiety, ADHD presented to hospital with suicidal ideation. Patient reported that Pt reports that yesterday she cut superficially on her arms and upper thigh for the first time in 7 years. Pt reports that she did this in an attempt to feel. Pt also reports that she has suffered with depression for 8 years. Patient denies fever, chills, nausea, and secondary dysuria Problems (1) Depression with suicidal ideation Status: Acute Problem Text: Defer treatment to psych team Plan / VTE VTE Prophylaxis Ordered?: No VTE Exclusion Mechanical Proph: Low Risk for VTE MIKAELA COONEY DO Apr 05, 2021 16:32
[2021-04-05 17:27] VITALS: BP 130/72
[2021-04-06 07:05] VITALS: BP 112/54
[2021-04-06] MEDS: SERTRALINE 100 MG TAB PO SCH (08:19)
[2021-04-06] MEDS: METHYLPHENIDATE ER 18 MG TABLET (CONCERTA) PO SCH (08:19)
[2021-04-06] MEDS: ACETAMINOPHEN TAB 650MG DOSE (2X325MG) PO PRN ×2 (08:20→18:52)
[2021-04-06] MEDS: CETIRIZINE (ZyrTEC) 10 MG TAB PO PRN (11:48)
[2021-04-06 16:15] VITALS: BP 129/85
[2021-04-06] MEDS: OXYMETAZOLINE 0.05% NASAL SPRAY (AFRIN) PRN (18:49)
[2021-04-07 05:51] VITALS: BP 119/72
[2021-04-07] MEDS: CETIRIZINE (ZyrTEC) 10 MG TAB PO PRN (08:11)
[2021-04-07] MEDS: METHYLPHENIDATE ER 18 MG TABLET (CONCERTA) PO SCH (08:12)
[2021-04-07] MEDS: SERTRALINE 100 MG TAB PO SCH (08:12)
[2021-04-07] MEDS: OXYMETAZOLINE 0.05% NASAL SPRAY (AFRIN) PRN ×2 (08:12→16:58)
[2021-04-07 18:50] VITALS: BP 124/84
[2021-04-07] MEDS ORDERED: guaiFENesin DM LIQ 10ML UD PO PRN (21:35)
--- NOTE | 2021-04-07 21:41 | IPNPDOC ---
Subjective Date Seen The patient was seen on 04/07/21. Subjective Chief Complaint/HPI Chief complaint: Congestion, cough, shortness of breath and chest pain. History of present illness: Patient is 21 years old female with past medical history of depression, anxiety, ADHD presented to hospital with suicidal ideat ion.. There were reports that she cut superficially on her arms and upper thigh for the first time in 7 years on the day prior to admission.. She stated that she did this in an attempt to feel.. She further said she has suffered with depression for 8 years. She was admitted to the mental health unit for further evaluation and treatment. We were initially consulted to assist with medical management. Called to bedside this evening with complaints of congestion, shortness of breath and low-grade fever of 99.3. The patient states that she started having difficulty with her seasonal allergies from the time of admission. She began to experience congestion. This is not unusual for her when she is inside for long periods of time. She went on to tell me that symptoms got worse today, however. She began to experience some cough and a feeling of tightness in her chest. Congestion seem to worsen. She has a history of exercised induced asthma but is not on any routine medications for this. She was given some Afrin and Atarax with little improvement in her symptoms. Of note, patient states she has received her full Covid vaccination and had a negative Covid test on admission. Objective Physical Examination General Exam: Positive: Alert Eye Exam: Positive: PERRLA ENT Exam: Positive: Atraumatic Neck Exam: Positive: Supple Chest Exam: Positive: Clear to auscultation Heart Exam: Positive: Rate Normal Telemetry: Positive: No significant arrhythmia Abdomen Exam: Positive: Normal bowel sounds Extremity Exam: Negative: Clubbing Skin Exam: Positive: Nl turgor and temperature Neuro Exam: Positive: Normal Gait Psych Exam: Positive: Oriented x 3 Other physical findings Patient was seen in the exam room with complaints as outlined above. She is alert and oriented 3. She is very cooperative and pleasant. HEENT is remarkable for some pain with palpation of sinuses. There is some mild enlargement of submandibular nodes. Lungs are clear to auscultation. Heart regular rate and rhythm without murmur. Abdomen is soft, nontender to percussion and palpation with bowel sounds positive. Extremities with good range of motion. No lower extremity edema. Neurologic: Grossly intact. Assessment /Plan Assessment 1. Suicidal ideation. Plan per psychiatry. 2. Acute bronchitis. We'll treat the patient empirically with ciprofloxacin. Will also add albuterol inhaler and steroids for 5 days. Patient states she expects to discharge tomorrow. Would recommend that she follow-up with primary care in the next 7-10 days and return to the hospital if symptoms worsen. 3. Asthma, exercise-induced, with no acute exacerbation. Plan as outlined above. Thank you for allowing us to produce pain in the care of this patient. We will continue to remain available as needed. Problems (1) Depression with suicidal ideation Status: Acute Problem Text: Defer treatment to psych team Plan/VTE VTE Prophylaxis Ordered?: No VTE Exclusion Mechanical Proph: Low Risk for VTE VS, I&O, 24H, Fishbone Vital Signs/I&O Vital Signs Date Time Temp Pulse Resp B/P (MAP) Pulse Ox O2 Delivery O2 Flow Rate FiO2 04/07/21 18:50 99.3 100 18 124/84 (97) 99 Room Air SARIAH LONG Apr 07, 2021 21:41
[2021-04-07] MEDS: CIPROFLOXACIN 500MG TABLET PO SCH (22:11)
[2021-04-07] MEDS: ALBUTEROL 90 MCG/ACT 8GM HFA INHALER INH SCH (22:11)
--- NOTE | 2021-04-07 22:31 | MHIPN ---
[facility] PROGRESS NOTE DATE: 04/06/2021 The patient is seen via telepsychiatry due to the current Coronavirus crisis. Today, the patient tells me that she is good. She says "I'm pretty happy today." She says she did not sleep good but that is because she has allergies and we will order Zyrtec for her. She has no complaints. MENTAL STATUS EXAMINATION: She is alert and oriented times three, pleasant and cooperative, verbally spontaneous. Eye contact is good. Mood is good. Affect appropriate. There is no formal thought disorder noted. She is not psychotic, suicidal, or homicidal. Concentration and memory is good. Insight and judgment is fair. DIAGNOSES: Major depressive disorder, single episode, moderate. Unspecified anxiety disorder. Attention deficit hyperactivity disorder. TREATMENT PLAN: At this point, we will continue to monitor the patient for further stabilization of her mood and resolution of suicidal ideations.
[2021-04-08] MEDS: CIPROFLOXACIN 500MG TABLET PO SCH (05:29)
[2021-04-08 06:10] VITALS: BP 149/85
[2021-04-08] MEDS: METHYLPHENIDATE ER 18 MG TABLET (CONCERTA) PO SCH (08:31)
[2021-04-08] MEDS: ALBUTEROL 90 MCG/ACT 8GM HFA INHALER INH SCH (08:33)
[2021-04-08] MEDS: SERTRALINE 100 MG TAB PO SCH (08:33)
[2021-04-08] MEDS ORDERED: predniSONE 20 MG TAB PO SCH (09:00)
[2021-04-08] MEDS ORDERED: VENTAER INH (10:15)
[2021-04-08] MEDS ORDERED: METH18TA PO (10:15)
[2021-04-08] MEDS ORDERED: ZOLO100T PO (10:15)
[2021-04-08] MEDS ORDERED: CIPR-249 PO (10:15)
[2021-04-08] MEDS ORDERED: TRAZ-252 PO (10:15)
[2021-04-08] MEDS ORDERED: HYDR50TA70 PO (10:15)
[2021-04-08] MEDS ORDERED: FAMO20TA PO (10:15)
--- NOTE | 2021-04-08 12:20 | MHIPN ---
[facility] PROGRESS NOTE DATE OF SERVICE: 04/07/2021 HISTORY OF PRESENT ILLNESS: Patient today states that she is doing good. She says she slept better, her allergies are much better today. She has no complaints. The patient is seen via TelePsychiatry due to the current Coronavirus crisis. MENTAL STATUS EXAM: This patient is alert and oriented times 3, pleasant and cooperative, verbally spontaneous. Eye contact is good. Affect is full range and appropriate. Patient is not psychotic, suicidal or homicidal. Concentration is fair. Memory intact. Insight and judgment fair. DIAGNOSES: 1. Major depression disorder single episode. 2. Unspecified anxiety disorder. 3. Attention deficit hyperactivity disorder. TREATMENT PLAN: At this point the patient will be monitored for continued elevation and stabilization of mood and continued resolution of any suicidal thoughts.
--- NOTE | 2021-04-08 14:36 | MHDS ---
[facility] DISCHARGE SUMMARY DATE OF ADMISSION: 04/04/2021 DATE OF DISCHARGE: 04/08/2021 DIAGNOSES: 1. Major depressive disorder, moderate. 2. Unspecified anxiety disorder. 3. Attention deficit hyperactivity disorder (ADHD). IDENTIFYING DATA: She is a 21-year-old female, single, employed, living with her boyfriend and two dogs, was admitted because of severe depression and suicidal thoughts. Patient also has a history of cutting behavior. For details of history of present illness (HPI), past psychiatric history, substance abuse history, medical history, personal history, social history, please refer to the initial evaluation. COURSE IN THE HOSPITAL: Patient initially was severely depressed. She had vegetative signs of depression and she also had suicidal thoughts. She was placed on sertraline and she was also provided with individual, group and milieu therapy. Patient's mood slowly improved. She slept better, started interacting with peers and staff. She attended groups. Denied any side effects from the medication. Denied any suicidal thoughts. She was stable at the time of discharge. MENTAL STATUS EXAMINATION: Casually dressed, neatly dressed, cooperative. Made good eye contact. Psychomotor activity is normal. Speech: Rate, rhythm and volume is normal. Thought process: Linear and goal-directed. Mood is euthymic with appropriate affect. Thought content: Denied any suicidal or homicidal ideas. Denied any delusions. Denied any auditory or visual hallucinations. She is oriented to time, place and person. Her attention is good. Memory: Immediate, remote and recent are good. Her impulse control and judgment are good. Insight is good. REVIEW OF SYSTEMS: Denied any chest pain or palpitations. Denied any shortness of breath or cough. Denied abdominal pain. Denied dizziness. MEDICATIONS: - sertraline 100 mg in the morning. - patient was also given by the simulation developer ciprofloxacin 500 mg twice daily continued for five more days - patient was also given albuterol inhaler DISCHARGE PLAN: Patient will be followed up at [facility] outpatient clinic and she gets her attention deficit hyperactivity disorder (ADHD) medications from her family doctor.
--- NOTE | 2021-04-08 22:18 | ECGEPIP ---
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
== END 2021-04-08 12:34 | disposition home or self-care (01) | DRG 751 ==
LOC: M ED 21:39 → M ED INP 04-04 11:22 → M PSY 04-04 14:02
PROVIDERS: ADMIT Psychiatry & Neurology Psychiatry; ATTEND Psychiatry & Neurology Psychiatry
DX: F32.1 Major depressive disorder, single episode, moderate (principal); R45.851 Suicidal ideations; F41.9 Anxiety disorder, unspecified; F90.9 Attention-deficit hyperactivity disorder, unspecified type; J20.9 Acute bronchitis, unspecified; J45.909 Unspecified asthma, uncomplicated; Z20.822 Contact with and (suspected) exposure to COVID-19; Z79.899 Other long term (current) drug therapy; Z91.5 Personal history of self-harm; Z88.0 Allergy status to penicillin; Z87.891 Personal history of nicotine dependence

== ENCOUNTER 2021-04-26 17:16 | Emergency (ER) | payer OTHER ==
[~2021-04-26] VITALS: Ht 162.6 cm; Wt 108.6 kg
[~2021-04-26 17:16] MED LIST changes: +CIPR-249 PO; +HYDR50TA70 PO; +LO LTAB PO; +METH18TA PO; +METH36TA5 PO; +TRAZ-252 PO; +VENTAER INH; +ZOLO100T PO
[2021-04-26] MEDS ORDERED: ZYRTTAB8 PO (17:27)
[2021-04-26 18:44] LABS: HEMOGLOBIN 12.6 g/dl (12.0-15.5); MEAN CORPUSCULAR HEMOGLOBIN 26.5 pg (27.0-33.0); MEAN CORPUSCULAR HGB CONC 32.3 g/dl (32.0-36.5); MEAN CORPUSCULAR VOLUME 82.1 fl (80.0-96.0); PLATELET COUNT, AUTOMATED 277 10^3/uL (150-450); RED BLOOD COUNT 4.75 10^6/uL (4.00-5.40); WHITE BLOOD COUNT 9.6 10^3/uL (4.0-10.0)
[2021-04-26 19:08] LABS: HCG, SERUM QUALITATIVE NEGATIVE (NEGATIVE)
[2021-04-26 19:17] LABS: ACETAMINOPHEN LEVEL < 2.0 UG/ML (10.0-30.0); ALT/SGPT 30 U/L (12-78); BILIRUBIN,DIRECT 0.1 MG/DL (0.0-0.2); BILIRUBIN,TOTAL 0.4 MG/DL (0.2-1.0); BLOOD UREA NITROGEN 15 MG/DL (7-18); CARBON DIOXIDE LEVEL 28 MEQ/L (21-32); CHLORIDE LEVEL 107 MEQ/L (98-107); CREATININE FOR GFR 0.79 MG/DL (0.55-1.30); ETHYL ALCOHOL (ETHANOL) < 0.003 % (0.000-0.010); GLOMERULAR FILTRATION RATE > 60.0 (>60); GLUCOSE, FASTING 89 MG/DL (70-100); POTASSIUM SERUM 3.8 MEQ/L (3.5-5.1); SALICYLATE LEVEL < 1.7 MG/DL (5.0-30.0); SODIUM LEVEL 140 MEQ/L (136-145); TOTAL PROTEIN 7.2 GM/DL (6.4-8.2)
[2021-04-26 19:20] LABS: AMPHETAMINES LEVEL URINE NEGATIVE (NEGATIVE); BARBITURATES URINE NEGATIVE (NEGATIVE); BENZODIAZEPINES URINE NEGATIVE (NEGATIVE); CANNABINOIDS URINE NEGATIVE (NEGATIVE); COCAINE METABOLITE URINE NEGATIVE (NEGATIVE); METHADONE URINE NEGATIVE (NEGATIVE); OPIATES URINE NEGATIVE (NEGATIVE); PHENCYCLIDINE URINE NEGATIVE (NEGATIVE)
[2021-04-26 22:04] LABS: RSV AMPLIFICATION NEGATIVE (NEGATIVE)
[2021-04-27 01:14] VITALS: BP 123/78
--- NOTE | 2021-04-27 07:54 | ECGEPIP ---
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
== END 2021-04-27 01:29 ==
LOC: M ED 18:52
DX: R45.851 Suicidal ideations (principal); F33.9 Major depressive disorder, recurrent, unspecified; Z91.5 Personal history of self-harm; Z88.0 Allergy status to penicillin; Z79.899 Other long term (current) drug therapy

== ENCOUNTER 2021-06-06 18:19 | Emergency (ER) | payer OTHER ==
[~2021-06-06] VITALS: Ht 162.6 cm; Wt 109.4 kg
[~2021-06-06 18:19] MED LIST changes: +ZYRTTAB8 PO
[2021-06-06 18:20] VITALS: BP 139/82
[2021-06-06] MEDS ORDERED: CETI10CH PO (18:39)
[2021-06-06] MEDS ORDERED: SERT50TA29 (18:39)
--- NOTE | 2021-06-07 05:33 | ECGEPIP ---
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
== END 2021-06-06 21:43 | disposition left against medical advice (07) ==
LOC: M ED 18:19
DX: Z53.29 Procedure and treatment not carried out because of patient's decision for other reasons (principal)

== ENCOUNTER 2022-01-19 19:07 | Emergency (ER) | payer OTHER ==
[~2022-01-19] VITALS: Ht 162.6 cm; Wt 103.6 kg
[~2022-01-19 19:07] MED LIST changes: +CETI10CH PO; +SERT50TA29
[2022-01-19 22:29] LABS: BASO % 0.6 % (0.0-1.0); EOS # 0.1 10^3/uL (0.0-0.5); EOS % 1.1 % (0.0-3.0); HEMATOCRIT 41.3 % (36.0-47.0); HEMOGLOBIN 13.8 g/dl (12.0-15.5); LYMPH # 2.2 10^3/uL (1.5-5.0); LYMPH % 29.9 % (24.0-44.0); MEAN CORPUSCULAR HEMOGLOBIN 28.9 pg (27.0-33.0); MEAN CORPUSCULAR HGB CONC 33.4 g/dl (32.0-36.5); MEAN CORPUSCULAR VOLUME 86.6 fl (80.0-96.0); MONO # 0.5 10^3/uL (0.0-0.8); MONO % 6.5 % (2.0-8.0); NEUTROPHILS # 4.4 10^3/uL (1.5-8.5); NEUTROPHILS % 61.6 % (36.0-66.0); PLATELET COUNT, AUTOMATED 285 10^3/uL (150-450); RED BLOOD COUNT 4.77 10^6/uL (4.00-5.40); WHITE BLOOD COUNT 7.2 10^3/uL (4.0-10.0)
[2022-01-19 23:01] LABS: BLOOD UREA NITROGEN 10 MG/DL (7-18); CALCIUM LEVEL 9.1 MG/DL (8.5-10.1); CARBON DIOXIDE LEVEL 27 MEQ/L (21-32); CHLORIDE LEVEL 107 MEQ/L (98-107); CREATININE FOR GFR 0.76 MG/DL (0.55-1.30); GLOMERULAR FILTRATION RATE > 60.0 (>60); GLUCOSE, FASTING 94 MG/DL (70-100); POTASSIUM SERUM 3.9 MEQ/L (3.5-5.1); SODIUM LEVEL 138 MEQ/L (136-145)
[2022-01-20 00:33] VITALS: BP 127/90
== END 2022-01-20 00:35 | disposition home or self-care (01) ==
LOC: M ED 19:07
DX: J45.909 Unspecified asthma, uncomplicated (principal); F33.9 Major depressive disorder, recurrent, unspecified; F41.9 Anxiety disorder, unspecified; F90.9 Attention-deficit hyperactivity disorder, unspecified type; E66.9 Obesity, unspecified; Z79.899 Other long term (current) drug therapy; Z88.0 Allergy status to penicillin; Z77.098 Contact with and (suspected) exposure to other hazardous, chiefly nonmedicinal, chemicals; F12.20 Cannabis dependence, uncomplicated

== ENCOUNTER 2022-10-22 17:38 | Emergency (ER) | payer OTHER ==
[~2022-10-22] VITALS: Ht 162.6 cm; Wt 102.7 kg
[2022-10-22 18:46] LABS: BASO # 0.1 10^3/uL (0.0-0.2); BASO % 0.6 % (0.0-1.0); EOS % 0.5 % (0.0-3.0); HEMATOCRIT 39.1 % (36.0-47.0); HEMOGLOBIN 13.1 g/dl (12.0-15.5); LYMPH # 1.4 10^3/uL (1.5-5.0); LYMPH % 18.1 % (24.0-44.0); MEAN CORPUSCULAR HEMOGLOBIN 28.6 pg (27.0-33.0); MEAN CORPUSCULAR HGB CONC 33.5 g/dl (32.0-36.5); MEAN CORPUSCULAR VOLUME 85.4 fl (80.0-96.0); MONO # 0.4 10^3/uL (0.0-0.8); MONO % 5.2 % (2.0-8.0); NEUTROPHILS # 5.8 10^3/uL (1.5-8.5); NEUTROPHILS % 75.3 % (36.0-66.0); PLATELET COUNT, AUTOMATED 261 10^3/uL (150-450); RED BLOOD COUNT 4.58 10^6/uL (4.00-5.40); WHITE BLOOD COUNT 7.7 10^3/uL (4.0-10.0)
[2022-10-22] MEDS ORDERED: HOLTER MONITOR XX (18:49)
[2022-10-22 19:08] LABS: BLOOD UREA NITROGEN 10 MG/DL (9-23); CALCIUM LEVEL 9.1 MG/DL (8.5-10.1); CARBON DIOXIDE LEVEL 25 MMOL/L (20-31); CHLORIDE LEVEL 106 MMOL/L (98-107); CREATININE FOR GFR 0.73 MG/DL (0.55-1.30); GLOMERULAR FILTRATION RATE > 60.0 (>60); GLUCOSE, FASTING 94 MG/DL (60-100); MAGNESIUM LEVEL 1.9 MG/DL (1.8-2.4); POTASSIUM SERUM 3.7 MMOL/L (3.5-5.1); SODIUM LEVEL 139 MMOL/L (136-145)
[2022-10-22 19:16] LABS: THYROID STIMULATING HORMONE 0.807 uIU/ML (0.55-4.78); THYROXINE (T4) 7.6 UG/DL (4.5-10.9)
[2022-10-22 19:17] LABS: FREE THYROXINE INDEX 2.6 % (1.3-4.8); T UPTAKE 33.7 % (22.5-37.0)
[2022-10-22 20:16] VITALS: BP 121/85
== END 2022-10-22 20:23 | disposition home or self-care (01) ==
LOC: M ED 17:38 → EDBD 17:38 → M ED 20:23
DX: R00.2 Palpitations (principal); R94.31 Abnormal electrocardiogram [ECG] [EKG]; F90.9 Attention-deficit hyperactivity disorder, unspecified type; Z79.899 Other long term (current) drug therapy; Z88.0 Allergy status to penicillin; Z87.891 Personal history of nicotine dependence; Z87.738 Personal history of other specified (corrected) congenital malformations of digestive system; Z98.890 Other specified postprocedural states; Z83.3 Family history of diabetes mellitus; Z82.79 Family history of other congenital malformations, deformations and chromosomal abnormalities

== ENCOUNTER → 2022-12-26 | Outpatient (CLI) | payer OTHER ==
[~2022-12-26] MED LIST changes: +HOLTER MONITOR XX
== END ==
LOC: M WUC 10:14
PROVIDERS: ATTEND Nurse Practitioner Family
DX: M79.671 Pain in right foot (principal)

== ENCOUNTER 2023-02-16 19:25 | Emergency (ER) | payer OTHER ==
[2023-02-16] MEDS ORDERED: IBUP-1022 PO (21:39)
[2023-02-16 21:49] VITALS: BP 129/91
== END 2023-02-16 21:50 | disposition home or self-care (01) ==
LOC: M ED 19:25
DX: S60.221A Contusion of right hand, initial encounter (principal); W22.8XXA Striking against or struck by other objects, initial encounter; Y92.009 Unspecified place in unspecified non-institutional (private) residence as the place of occurrence of the external cause; Y93.89 Activity, other specified; Y99.8 Other external cause status; J45.909 Unspecified asthma, uncomplicated; N83.209 Unspecified ovarian cyst, unspecified side; Z88.0 Allergy status to penicillin; Z79.51 Long term (current) use of inhaled steroids; Z79.899 Other long term (current) drug therapy

== ENCOUNTER → 2023-03-04 | Outpatient (CLI) | payer OTHER ==
[2023-03-04 14:22] LABS: BASO # 0.1 10^3/uL (0.0-0.2); BASO % 0.9 % (0.0-1.0); EOS # 0.1 10^3/uL (0.0-0.5); EOS % 1.9 % (0.0-3.0); HEMATOCRIT 45.1 % (36.0-47.0); HEMOGLOBIN 14.8 g/dl (12.0-15.5); LYMPH # 1.8 10^3/uL (1.5-5.0); LYMPH % 33.7 % (24.0-44.0); MEAN CORPUSCULAR HEMOGLOBIN 29.2 pg (27.0-33.0); MEAN CORPUSCULAR HGB CONC 32.8 g/dl (32.0-36.5); MONO # 0.3 10^3/uL (0.0-0.8); MONO % 6.1 % (2.0-8.0); NEUTROPHILS % 57.2 % (36.0-66.0); PLATELET COUNT, AUTOMATED 290 10^3/uL (150-450); RED BLOOD COUNT 5.07 10^6/uL (4.00-5.40); WHITE BLOOD COUNT 5.3 10^3/uL (4.0-10.0)
[2023-03-04 14:32] LABS: HEMOGLOBIN A1c 4.9 % (4.0-6.0)
[2023-03-04 14:51] LABS: ALBUMIN 4.3 G/DL (3.2-5.2); ALKALINE PHOSPHATASE 109 U/L (46-116); ALT/SGPT 35 U/L (7.0-40); AST/SGOT 15 U/L (<34); BILIRUBIN,TOTAL 0.4 MG/DL (0.3-1.2); BLOOD UREA NITROGEN 12 MG/DL (9-23); CALCIUM LEVEL 9.5 MG/DL (8.5-10.1); CARBON DIOXIDE LEVEL 29 MMOL/L (20-31); CHLORIDE LEVEL 105 MMOL/L (98-107); CHOLESTEROL LEVEL 150 MG/DL (<200); CHOLESTEROL RISK RATIO 3.45 (<5); CREATININE FOR GFR 0.77 MG/DL (0.55-1.30); GLOMERULAR FILTRATION RATE > 60.0 (>60); GLUCOSE, FASTING 82 MG/DL (60-100); HDL CHOLESTEROL 43.4 MG/DL (>40); LDL CHOLESTEROL 85.8 MG/DL (<100); NON-HDL-C 106.6 MG/DL; POTASSIUM SERUM 4.6 MMOL/L (3.5-5.1); SODIUM LEVEL 139 MMOL/L (136-145); TOTAL PROTEIN 7.2 G/DL (5.7-8.2); TRIGLYCERIDES LEVEL 104 MG/DL (<150)
[2023-03-04 14:56] LABS: THYROID STIMULATING HORMONE 1.754 uIU/ML (0.55-4.78); TOTAL 25(OH) VITAMIN D 24.7 NG/ML (20.0-100.0)
[2023-03-04 14:59] LABS: FREE T4 0.96 NG/DL (0.89-1.76)
== END ==
LOC: M PLALAB 09:28
PROVIDERS: ATTEND Physician Assistant
DX: E78.5 Hyperlipidemia, unspecified (principal); E66.9 Obesity, unspecified

== ENCOUNTER 2023-08-30 17:10 | Emergency (ER) | payer OTHER ==
[~2023-08-30] VITALS: Ht 162.6 cm; Wt 108.2 kg
[2023-08-30 17:10] VITALS: BP 130/91; TEMP 99.8; O2SAT 97
== END 2023-08-30 19:15 | disposition home or self-care (01) ==
LOC: M ED 17:10
DX: S69.91XA Unspecified injury of right wrist, hand and finger(s), initial encounter (principal); W01.0XXA Fall on same level from slipping, tripping and stumbling without subsequent striking against object, initial encounter; Y92.019 Unspecified place in single-family (private) house as the place of occurrence of the external cause; Y93.9 Activity, unspecified; Y99.9 Unspecified external cause status; Z88.0 Allergy status to penicillin; Z79.1 Long term (current) use of non-steroidal anti-inflammatories (NSAID); Z79.51 Long term (current) use of inhaled steroids

== ENCOUNTER → 2023-10-29 | Outpatient (CLI) | payer OTHER ==
[2023-10-29 17:41] LABS: HEMOGLOBIN A1c 5.1 % (4.0-6.0)
[2023-10-29 17:51] LABS: FREE T4 0.87 NG/DL (0.89-1.76)
[2023-10-29 17:52] LABS: BLOOD UREA NITROGEN 12 MG/DL (9-23); CALCIUM LEVEL 9.3 MG/DL (8.5-10.1); CARBON DIOXIDE LEVEL 29 MMOL/L (20-31); CHLORIDE LEVEL 106 MMOL/L (98-107); CREATININE FOR GFR 0.64 MG/DL (0.55-1.30); GLOMERULAR FILTRATION RATE > 60.0 (>60); GLUCOSE, FASTING 71 MG/DL (60-100); PHOSPHORUS LEVEL 3.9 MG/DL (2.5-4.9); POTASSIUM SERUM 4.6 MMOL/L (3.5-5.1); SODIUM LEVEL 140 MMOL/L (136-145)
[2023-10-29 17:53] LABS: THYROID STIMULATING HORMONE 1.925 uIU/ML (0.55-4.78)
== END ==
LOC: M PLALAB 16:06
PROVIDERS: ATTEND Physician Assistant
DX: E16.1 Other hypoglycemia (principal); Z68.41 Body mass index [BMI] 40.0-44.9, adult

== ENCOUNTER → 2024-06-02 | Outpatient (CLI) | payer OTHER ==
[~2024-06-02] MED LIST changes: +FLUO-365; -FLUO20CA22
[2024-06-02 17:52] LABS: BASO % 0.5 % (0.0-1.0); EOS # 0.1 10^3/uL (0.0-0.5); EOS % 1.3 % (0.0-3.0); HEMATOCRIT 42.1 % (36.0-47.0); HEMOGLOBIN 14.2 g/dl (12.0-15.5); LYMPH % 25.9 % (24.0-44.0); MEAN CORPUSCULAR HEMOGLOBIN 29.9 pg (27.0-33.0); MEAN CORPUSCULAR HGB CONC 33.7 g/dl (32.0-36.5); MEAN CORPUSCULAR VOLUME 88.6 fl (80.0-96.0); MONO # 0.5 10^3/uL (0.0-0.8); MONO % 6.3 % (2.0-8.0); NEUTROPHILS # 5.1 10^3/uL (1.5-8.5); NEUTROPHILS % 65.7 % (36.0-66.0); PLATELET COUNT, AUTOMATED 270 10^3/uL (150-450); RED BLOOD COUNT 4.75 10^6/uL (4.00-5.40); WHITE BLOOD COUNT 7.8 10^3/uL (4.0-10.0)
[2024-06-02 18:29] LABS: FERRITIN 37.7 NG/ML (7.3-270.7)
== END ==
LOC: M PLALAB 14:58
PROVIDERS: ATTEND Physician Assistant Medical
DX: R10.13 Epigastric pain (principal)

== ENCOUNTER 2024-06-13 16:51 | Emergency (ER) | payer OTHER ==
[~2024-06-13] VITALS: Ht 162.6 cm; Wt 112.5 kg
[2024-06-13 16:53] VITALS: BP 139/93; TEMP 96.6; O2SAT 96
[2024-06-13] MEDS: IBUPROFEN 600MG TAB PO ONE (18:27)
[2024-06-13] MEDS ORDERED: IBUP-1022 PO (18:31)
== END 2024-06-13 18:59 | disposition home or self-care (01) ==
LOC: M ED 16:51
DX: S63.601A Unspecified sprain of right thumb, initial encounter (principal); X50.0XXA Overexertion from strenuous movement or load, initial encounter; Y92.238 Other place in hospital as the place of occurrence of the external cause; Y93.F9 Activity, other caregiving; Y99.0 Civilian activity done for income or pay; Z79.1 Long term (current) use of non-steroidal anti-inflammatories (NSAID)

== ENCOUNTER 2024-07-20 15:25 | Emergency (ER) | payer BC, OTHER ==
[~2024-07-20] VITALS: Ht 162.6 cm; Wt 113.0 kg
[2024-07-20 15:29] VITALS: TEMP 97.8
[2024-07-20 17:11] LABS: BASO % 0.6 % (0.0-1.0); EOS # 0.1 10^3/uL (0.0-0.5); EOS % 0.9 % (0.0-3.0); HEMATOCRIT 41.7 % (36.0-47.0); HEMOGLOBIN 14.3 g/dl (12.0-15.5); LYMPH # 1.7 10^3/uL (1.5-5.0); LYMPH % 25.9 % (24.0-44.0); MEAN CORPUSCULAR HEMOGLOBIN 29.6 pg (27.0-33.0); MEAN CORPUSCULAR HGB CONC 34.3 g/dl (32.0-36.5); MEAN CORPUSCULAR VOLUME 86.3 fl (80.0-96.0); MONO # 0.4 10^3/uL (0.0-0.8); MONO % 6.3 % (2.0-8.0); NEUTROPHILS # 4.3 10^3/uL (1.5-8.5); PLATELET COUNT, AUTOMATED 257 10^3/uL (150-450); RED BLOOD COUNT 4.83 10^6/uL (4.00-5.40); WHITE BLOOD COUNT 6.5 10^3/uL (4.0-10.0)
[2024-07-20 18:43] LABS: MAGNESIUM LEVEL 2.1 MG/DL (1.8-2.4)
[2024-07-20 18:46] LABS: CK-MB VALUE MASS < 1.0 NG/ML (<3.6)
[2024-07-20 18:47] LABS: HCG, SERUM QUALITATIVE NEGATIVE (NEGATIVE)
[2024-07-20 18:50] LABS: THYROID STIMULATING HORMONE 1.312 uIU/ML (0.55-4.78)
[2024-07-20 18:51] LABS: FREE T4 0.99 NG/DL (0.89-1.76)
[2024-07-20 18:52] LABS: CPK CREATINE PHOSPHOKINASE 143 U/L (34-145); MB/CK RELATIVE INDEX 0.69 (< OR =4)
[2024-07-20] MEDS ORDERED: ISOVUE-370 76% 100ML VIAL As Ordered ONE (19:26)
[2024-07-20] MEDS ORDERED: HOLTER MONITOR XX (20:18)
[2024-07-20] MEDS: ALBUTEROL 90 MCG/ACT 8GM HFA INHALER INH ONE (20:32)
[2024-07-20 21:05] VITALS: BP 127/66; O2SAT 97
== END 2024-07-20 21:10 | disposition home or self-care (01) ==
LOC: M ED 15:25
DX: R55 Syncope and collapse (principal); R00.2 Palpitations; J45.909 Unspecified asthma, uncomplicated; F41.9 Anxiety disorder, unspecified; F90.9 Attention-deficit hyperactivity disorder, unspecified type; Z88.0 Allergy status to penicillin
CPT/HCPCS: 36415; 71275; 80047; 82550; 82553; 83735; 84439; 84443; 84484; 84703; 85025; 93005; 93041; 94640; 99284; Q9967

== ENCOUNTER 2024-08-29 13:25 | Emergency (ER) | payer BC ==
[~2024-08-29] VITALS: Ht 162.6 cm; Wt 112.4 kg
[2024-08-29 13:29] VITALS: TEMP 97.3
[2024-08-29 14:32] LABS: BASO % 0.5 % (0.0-1.0); EOS # 0.1 10^3/uL (0.0-0.5); HEMATOCRIT 41.5 % (36.0-47.0); HEMOGLOBIN 13.9 g/dl (12.0-15.5); LYMPH # 1.6 10^3/uL (1.5-5.0); LYMPH % 26.8 % (24.0-44.0); MEAN CORPUSCULAR HEMOGLOBIN 29.2 pg (27.0-33.0); MEAN CORPUSCULAR HGB CONC 33.5 g/dl (32.0-36.5); MEAN CORPUSCULAR VOLUME 87.2 fl (80.0-96.0); MONO # 0.4 10^3/uL (0.0-0.8); MONO % 6.1 % (2.0-8.0); NEUTROPHILS # 3.9 10^3/uL (1.5-8.5); NEUTROPHILS % 65.4 % (36.0-66.0); PLATELET COUNT, AUTOMATED 286 10^3/uL (150-450); RED BLOOD COUNT 4.76 10^6/uL (4.00-5.40); WHITE BLOOD COUNT 5.9 10^3/uL (4.0-10.0)
[2024-08-29 14:47] LABS: INR 0.97; PARTIAL THROMBOPLASTIN TIME 30.7 SECONDS (24.8-34.2); PROTHROMBIN TIME 13.2 SECONDS (12.5-14.5)
[2024-08-29 14:58] LABS: CK-MB VALUE MASS < 1.0 NG/ML (<3.6)
[2024-08-29 14:59] LABS: LIPASE 35 U/L (12-53)
[2024-08-29 15:00] LABS: ALKALINE PHOSPHATASE 89 U/L (35-104); ALT/SGPT 32 U/L (7.0-40); AST/SGOT 15 U/L (<34); BILIRUBIN,DIRECT 0.1 MG/DL (<0.4); BILIRUBIN,TOTAL 0.5 MG/DL (0.3-1.2); BLOOD UREA NITROGEN 16 MG/DL (9-23); CALCIUM LEVEL 10.2 MG/DL (8.5-10.1); CARBON DIOXIDE LEVEL 26 MMOL/L (20-31); CHLORIDE LEVEL 106 MMOL/L (98-107); CPK CREATINE PHOSPHOKINASE 132 U/L (34-145); CREATININE FOR GFR 0.66 MG/DL (0.55-1.30); GLOMERULAR FILTRATION RATE > 60.0 (>60); GLUCOSE, FASTING 99 MG/DL (60-100); MB/CK RELATIVE INDEX 0.75 (< OR =4); POTASSIUM SERUM 3.9 MMOL/L (3.5-5.1); SODIUM LEVEL 140 MMOL/L (136-145); TOTAL PROTEIN 7.3 G/DL (5.7-8.2)
[2024-08-29 15:01] LABS: HCG, SERUM QUALITATIVE NEGATIVE (NEGATIVE); THYROID STIMULATING HORMONE 1.323 uIU/ML (0.55-4.78)
[2024-08-29 15:02] LABS: FREE T4 0.96 NG/DL (0.89-1.76)
[2024-08-29 15:40] VITALS: O2SAT 98
[2024-08-29 18:04] VITALS: BP 142/92
== END 2024-08-29 19:06 | disposition left against medical advice (07) ==
LOC: M ED 13:25
DX: Z53.21 Procedure and treatment not carried out due to patient leaving prior to being seen by health care provider (principal)

== ENCOUNTER 2024-11-03 11:21 | Emergency (ER) | payer OTHER, BC ==
[~2024-11-03] VITALS: Ht 162.6 cm; Wt 108.2 kg
[2024-11-03] MEDS ORDERED: ETON68IM SC (11:29)
[2024-11-03 11:31] VITALS: BP 129/74; TEMP 97.4; O2SAT 97
[2024-11-03] MEDS ORDERED: IBUP-1022 PO (14:36)
== END 2024-11-03 14:45 | disposition home or self-care (01) ==
LOC: M ED 11:21
DX: R07.89 Other chest pain (principal); S20.20XA Contusion of thorax, unspecified, initial encounter; W51.XXXA Accidental striking against or bumped into by another person, initial encounter; Z88.0 Allergy status to penicillin; Y92.230 Patient room in hospital as the place of occurrence of the external cause; Y93.89 Activity, other specified; Y99.0 Civilian activity done for income or pay; Z79.899 Other long term (current) drug therapy

== ENCOUNTER → 2025-04-12 | Outpatient (REF) | payer OTHER, BC, MEDICAID ==
[~2025-04-12] MED LIST changes: +ETON68IM SC; +METH36TA13 PO; -METH36TA5 PO
== END ==
LOC: M LAB REF 16:54
PROVIDERS: ATTEND Obstetrics & Gynecology
DX: Z34.81 Encounter for supervision of other normal pregnancy, first trimester (principal)

== ENCOUNTER → 2025-04-24 | Outpatient (CLI) | payer BC, MEDICAID | LOC: M PLALAB 11:46 | PROVIDERS: ATTEND Obstetrics & Gynecology | DX: Z34.82 Encounter for supervision of other normal pregnancy, second trimester (principal) ==

== ENCOUNTER → 2025-05-29 | Outpatient (CLI) | payer BC, MEDICAID ==
[~2025-05-29] MED LIST changes: -IBUP-1022 PO; +IBUP600T42 PO
[2025-05-29 18:41] LABS: PLATELET COUNT, AUTOMATED 197 10^3/uL (150-450)
[2025-05-29 19:09] LABS: GLUCOSE CHALLENGE TEST 1 HOUR 97 MG/DL (LESS THAN 140)
[2025-05-29 19:41] LABS: HIV 1&2 SCREEN NEGATIVE (NEGATIVE)
[2025-05-29 19:49] LABS: HEPATITIS C VIRUS ABY INDEX < 0.02 INDEX (<0.8)
[2025-05-29 20:42] LABS: Trichomonas vaginalis (AMP) NOT DETECTED (NEGATIVE)
[2025-05-29 21:06] LABS: GC DNA AMPLIFICATION NEGATIVE (NEGATIVE)
== END ==
LOC: M PLALAB 13:44
PROVIDERS: ATTEND Student in an Organized Health Care Education/Training Program
DX: Z34.82 Encounter for supervision of other normal pregnancy, second trimester (principal)

== ENCOUNTER → 2025-06-14 | Outpatient (CLI) | payer BC, MEDICAID | LOC: M RAD 14:48 | PROVIDERS: ATTEND Student in an Organized Health Care Education/Training Program | DX: Z34.82 Encounter for supervision of other normal pregnancy, second trimester (principal); Z3A.20 20 weeks gestation of pregnancy ==

== ENCOUNTER → 2025-07-06 | Outpatient (CLI) | payer BC, MEDICAID | LOC: M WHC 16:03 | PROVIDERS: ATTEND Nurse Practitioner Family | DX: Z34.82 Encounter for supervision of other normal pregnancy, second trimester (principal) ==

== ENCOUNTER 2025-07-12 22:12 | Emergency (ER) | payer BC, MEDICAID ==
[~2025-07-12] VITALS: Ht 162.6 cm; Wt 107.3 kg
[2025-07-12 22:13] VITALS: BP 135/78; TEMP 97.6; O2SAT 98
[2025-07-12] MEDS ORDERED: PRENTAB9 PO (22:51)
[2025-07-12] MEDS ORDERED: TUMS500C PO (22:52)
== END 2025-07-12 23:42 | disposition admitted as inpatient to this hospital (09) ==
LOC: M ED 22:12
DX: Z53.21 Procedure and treatment not carried out due to patient leaving prior to being seen by health care provider (principal)

== ENCOUNTER 2025-07-12 22:23 | Outpatient (CLI) | payer BC, MEDICAID ==
[~2025-07-12] VITALS: Ht 162.6 cm; Wt 110.8 kg
[2025-07-12 22:38] VITALS: BP 115/65
[2025-07-12] MEDS ORDERED: PRENTAB9 PO (22:51)
[2025-07-12] MEDS ORDERED: TUMS500C PO (22:52)
[2025-07-12] MEDS ORDERED: HOME MED LIST COMPLETE! XX SCH (22:55)
== END 2025-07-12 23:16 | disposition home or self-care (01) ==
LOC: M LDO 22:23
PROVIDERS: ATTEND Advanced Practice Midwife
DX: O36.8120 Decreased fetal movements, second trimester, not applicable or unspecified (principal); O98.512 Other viral diseases complicating pregnancy, second trimester; O99.212 Obesity complicating pregnancy, second trimester; B00.9 Herpesviral infection, unspecified; E66.01 Morbid (severe) obesity due to excess calories; Z3A.25 25 weeks gestation of pregnancy
CPT/HCPCS: 59025; G0463

== ENCOUNTER → 2025-07-24 | Outpatient (REF) | payer BC, MEDICAID ==
[~2025-07-24] MED LIST changes: +PRENTAB9 PO
== END ==
LOC: M PLALAB 10:10
PROVIDERS: ATTEND Obstetrics & Gynecology
DX: R82.90 Unspecified abnormal findings in urine (principal)

== ENCOUNTER → 2025-08-08 | Outpatient (CLI) | payer BC, MEDICAID | LOC: M WHC 11:57 | PROVIDERS: ATTEND Obstetrics & Gynecology | DX: Z34.82 Encounter for supervision of other normal pregnancy, second trimester (principal); Z3A.27 27 weeks gestation of pregnancy ==

== ENCOUNTER → 2025-08-21 | Outpatient (CLI) | payer BC, MEDICAID ==
[2025-08-21 13:21] LABS: PLATELET COUNT, AUTOMATED 206 10^3/uL (150-450)
[2025-08-21 13:22] LABS: GLUCOSE CHALLENGE TEST 1 HOUR 106 MG/DL (LESS THAN 140)
[2025-08-21 13:58] LABS: HIV 1&2 SCREEN NEGATIVE (NEGATIVE)
[2025-08-21 14:06] LABS: HEPATITIS C VIRUS ABY INDEX < 0.02 INDEX (<0.8)
[2025-08-21 14:16] LABS: Trichomonas vaginalis (AMP) NOT DETECTED (NEGATIVE)
[2025-08-21 14:39] LABS: GC DNA AMPLIFICATION NEGATIVE (NEGATIVE)
== END ==
LOC: M PLALAB 09:11
PROVIDERS: ATTEND Obstetrics & Gynecology
DX: Z34.82 Encounter for supervision of other normal pregnancy, second trimester (principal)

== ENCOUNTER → 2025-08-23 | Outpatient (REF) | payer BC, MEDICAID | LOC: M SFHCWAGY 17:06 | PROVIDERS: ATTEND Nurse Practitioner Family | DX: R82.90 Unspecified abnormal findings in urine (principal) ==

== ENCOUNTER → 2025-08-29 | Outpatient (CLI) | payer BC, MEDICAID | LOC: M WHC 08:13 | PROVIDERS: ATTEND Nurse Practitioner Family | DX: Z34.83 Encounter for supervision of other normal pregnancy, third trimester (principal) ==

== ENCOUNTER → 2025-09-06 | Outpatient (REF) | payer BC, MEDICAID | LOC: M SFHCWAGY 16:50 | PROVIDERS: ATTEND Obstetrics & Gynecology | DX: R82.90 Unspecified abnormal findings in urine (principal) ==

== ENCOUNTER → 2025-09-20 | Outpatient (CLI) | payer BC, MEDICAID | LOC: M WHC 14:06 | PROVIDERS: ATTEND Obstetrics & Gynecology | DX: Z53.9 Procedure and treatment not carried out, unspecified reason (principal) ==